=== PATIENT | female | born 1975 | race Caucasian/White ===

== ENCOUNTER 2016-12-28 16:10 | Emergency (ER) | payer OTHER ==
[~2016-12-28] VITALS: Ht 157.5 cm; Wt 81.6 kg
--- NOTE | 2016-12-28 17:10 | NUR ---
PT BIB SELF C/O L CHEEK SWELLING AND PAIN, SUDDEN ONSET OVERNIGHT. NO THROAT, TONGUE, OR NECK SWELLING. NO TROUBLE SWALLOWING OR SPEAKING. RESP EVEN UNLABORED. NAD NOTED. IN ER BED 09.
[2016-12-28] MEDS ORDERED: IBUPROFEN 600 MG TABLET PO ONE ×2 (17:54→18:00)
--- NOTE | 2016-12-28 18:46 | NUR ---
CLARIFIED WITH DR WILLETT THAT NO BMP IS ORDERED. OK PER MD FOR CT W CONTRAST WITHOUT BMP. PT HAS HAD A TUBAL LIGATION; NO CHANCE OF . 3RD RN AT BEDSIDE ATTEMPTING IV ACCESS.
--- NOTE | 2016-12-28 18:56 | NUR ---
DR. WILLETT NEEDS CT SCAN DONE [facility] BEFORE LABS, BUT STILL WAITING FOR IV LINE. ER WILL CALL WHEN READY.
--- NOTE | 2016-12-28 19:03 | NUR ---
VERIFIED WITH MD TO PERFORM FACIAL CT WITHOUT CONTRAST. UNABLE TO OBTAIN IV ACCESS BY 3 RNS
--- NOTE | 2016-12-28 20:16 | NUR ---
Patient discharged to home in stable condition. Written and verbal after care instructions given. Patient verbalizes understanding of instruction. AMBULATORY WITH STEADY.
[2016-12-28 20:19] VITALS: BP 130/85
== END 2016-12-28 20:19 | disposition home or self-care (01) ==
LOC: ER 16:12
DX: K04.7 Periapical abscess without sinus (principal); L03.211 Cellulitis of face; F17.200 Nicotine dependence, unspecified, uncomplicated; Z72.0 Tobacco use; Z71.6 Tobacco abuse counseling
CPT/HCPCS: 70486; 99284; 99406; A4606; Z7610